=== PATIENT | male | born 1940 | race Caucasian/White ===

== ENCOUNTER 2017-09-13 14:28 | Observation (INO) | payer OTHER, MEDICARE ==
[~2017-09-13] VITALS: Ht 175.3 cm; Wt 56.7 kg
--- NOTE | 2017-09-13 14:40 | ED GENERAL ADULT ---
History of Present Illness General Chief Complaint: Syncope and Near-Syncope Stated Complaint: BIBA SYNCOPAL EPISODE, A FIB Source: patient, family Exam Limitations: no limitations Vital Signs & Intake/Output Vital Signs & Intake/Output Vital Signs Date Time Temp Pulse Resp B/P B/P Pulse O2 O2 Flow FiO2 Mean Ox Delivery Rate 09/13 2307 Room Air 09/13 2246 97.9 63 22 140/96 98 09/13 2126 98.2 65 18 168/80 99 Room Air 09/13 1820 97.7 58 18 153/81 100 Room Air 09/13 1655 98.4 60 18 172/85 97 Room Air 09/13 1506 97 Room Air 09/13 1450 98.0 72 16 115/73 98 Room Air Allergies Coded Allergies: NO KNOWN ALLERGIES (01/29/13) Reconcile Medications Aspirin (Ecotrin*) 325 MG TABLET.DR 1 TAB PO Q48 HEART HEALTH (Reported) Cholecalciferol (Vitamin D3) (Vitamin D3) 400 UNIT TABLET 1 TAB PO DAILY VITAMIN SUPPORT (Reported) Levothyroxine Sodium (Synthroid) 75 MCG TABLET 1 TAB PO DAILY AC THYROID ( Reported) Triage Nurses Notes Reviewed? yes Onset: Abrupt Duration: day(s): (1) Timing: remote history Injury Environment: home Severity: moderate No Modifying Factors: none HPI: Patient is a 76-year-old male presenting to the emergency department with chief complaint of 2 episodes of syncope that happened just prior to arrival. Patient reports that he was feeling lightheaded after doing dishes and sat down. Told his that he was given passout tried to get up to go to the bathroom and then passed out. The lowered him to the ground. He was out for several minutes and then woke up. She called EMS and told him stamina ground but he had a go to the bathroom so he crawled to the bathroom. Patient then moved his bowels and then had another syncopal episode after moving his bowels on the toilet. Per the he was out for several minutes, she thinks 10 minutes. And then EMS arrived. When EMS arrived he was alert and oriented. Patient does report that the for onset of the first episode of syncope he had an episode of chest pressure that had resolved by the time he woke up. Unsure of head strike. Denies any visual changes. No current chest pain palpitations or shortness of breath. History of similar symptoms about 5 years ago and had a complete workup which was negative. 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 Denies any recent changes in medications. No recent travel. Denies recent illness. (Ana Neil) Past History Travel History Traveled to [place] past 21 day No Medical History Any Pertinent Medical History? see below for history Surgical History Surgical History: non-contributory Psychosocial History Who do you live with Family Services at Home None What is your primary language Ma[place] Family History Hx Contributory? No (Ana Neil) Review of Systems Review of Systems Constitutional: Reports: no symptoms. Comments Review of systems: See HPI, All other systems negative. Constitutional, no chills fever or weight loss HEENT: No visual changes no sore throat no congestion Cardiovascular: No palpitation , orthopnea or ankle swelling Skin, no jaundice no rashes Respiratory: No dyspnea cough sputum or hemoptysis GI: No nausea no vomiting : No dysuria No hematuria Muscle skeletal: no back pain, no neck pain, Neurologic: No numbness Psych: No stress anxiety or depression,. Heme/endocrine: No bruising no bleeding no polyuria or polydipsia Immunology: No splenectomy or history of AIDS (Ana Neil) Physical Exam Physical Exam General Appearance: well developed/nourished, no apparent distress, alert, awake , comfortable Comments: Well-developed well-nourished person in no acute distress HEENT: extraocular motion intact, no nystagmus. Pupils equally round and reactive to light and accommodation. Nose is atraumatic. External auditory canal and Tympanic membranes clear. Pharynx normal. No swelling or edema. Neck: Supple, no lymphadenopathy, normal range of motion without pain or tenderness, no C-spine tenderness. Back: Nontender Cardiovascular: Regular rate and rhythms, unable to appreciate any murmurs rubs or gallops. Respiratory: Chest nontender. No respiratory distress.breath sounds clear to auscultation bilaterally Abdomen: Soft, nontender nondistended, no appreciable organomegaly. Normal bowel sounds. No ascites, no rebound or guarding. No palpable masses. Extremity: No edema, no calf tenderness to palpation, normal and equal pulses. Full range of motion of upper and lower extremities without difficulty or pain. Muscular strength is 5 out of 5 in upper and lower extremities bilaterally. [employer] strength is equal and symmetric bilaterally. Neuro: Alert oriented x3, motor sensory normal, cranial nerves II through XII grossly intact. Cerebellar testing is unremarkable. Walks with steady gait. Skin: No appreciable rash on exposed skin, skin is warm and dry. Psych: Mood and affect is normal, memory and judgment is normal. Core Measures ACS in differential dx? Yes CVA/TIA Diagnosis: No Sepsis Present: No Sepsis Focused Exam Completed? No (Sherly SR,Ana) Progress Differential Diagnoses I considered the following diagnoses in my evaluation of the patient: Pulmonary embolus, intracranial hemorrhage, dissection, ACS, dehydration, orthostatic hypotension, seizure, cardiac arrhythmia Plan of Care: Orders Procedure Date/time Status Regular Diet 09/14 B Active CBC WITHOUT DIFFERENTIAL 09/14 0600 Active BASIC ELECTROLYTES PLUS BUN&CR 09/14 0600 Active TROPONIN LEVEL 09/14 0300 Active EKG 09/14 0300 Active Teach/Educate 09/13 230 Active Pain Treatment and Response 09/13 230 Active Nutritional Intake, Monitor 09/13 230 Active Isolation 09/13 230 Active Patient Care Conference 09/13 2304 Active Activity/Ambulation 09/13 2304 Active [id number] DOPPLER 09/13 2212 Active ECHOCARDIOGRAM 09/13 221 Active Code Status 09/13 212 Active TROPONIN LEVEL 09/13 211 Complete EKG 09/13 2112 Active Pathway - chart 09/13 211 Active House Staff 09/13 211 Active Patient Data 09/13 2110 Active Code Status 09/13 211 Complete Patient Data 09/[address] in observation 09/13 194 Active ED Holding Orders 09/13 1943 Active Vital Signs 09/13 194 Active Code Status 09/13 1943 Complete Add-on Test (ER Only) 09/13 1717 Active MISTAKE 09/13 1524 Active Intake & Output 09/13 1454 Active D-DIMER 09/13 1449 Complete Telemetry/[place] Specialist 09/13 1439 Active URINALYSIS 09/13 1439 Complete TSH REFLEX 09/13 1439 Complete TROPONIN LEVEL 09/13 1439 Complete PARTIAL THROMBOPLASTIN TIME 09/13 1439 Complete PROTHROMBIN TIME 09/13 1439 Complete COMPREHENSIVE METABOLIC PANEL 09/13 1439 Complete CBC WITHOUT DIFFERENTIAL 09/13 1439 Complete EKG 09/13 1439 Active VTE Mechanical Prophylaxis 09/13 UNK Active Vital Signs 09/13 UNK Active MISTAKE 09/13 UNK Active Telemetry/[place] Specialist 09/13 UNK Active Current Medications Sig/Sharad Start time Last Medication Dose Stop Time Status Admin Aspirin Buffered 325 MG Q48 09/15 1000 AC (Ecotrin) Cholecalciferol 400 IU DAILY 09/14 1000 AC (Vitamin D) Levothyroxine Sodium 0.075 MG DAILY AC 09/14 0700 AC (Synthroid) Heparin Sodium 5,000 UNIT Q8 09/13 2200 AC (Porcine) Acetaminophen 650 MG Q6P PRN 09/13 2115 AC (Tylenol) Laboratory Tests 09/13/17 2135: Troponin I 0.02 09/13/17 1533: Urine Color YEL, Urine Clarity CLEAR, Urine pH 6.0, Ur Specific Wideman 1.020, Urine Protein TRACE H, Urine Ketones NEG, Urine Nitrite NEG, Urine Bilirubin NEG, Urine Urobilinogen 0.2, Ur Leukocyte Esterase NEG, Ur Microscopic SEDIMENT EXAMINED, Urine RBC FEW H, Urine WBC 1-3 H, Ur Epithelial Cells RARE, Urine Bacteria FEW H, Hyaline Casts RARE H, Urine Mucus RARE, Urine Hemoglobin NEG, Urine Glucose NEG 09/13/17 1449: Anion Gap 12, Estimated GFR 53 L, BUN/Creatinine Ratio 19.2, Glucose 176 H, Calcium 9.3, Total Bilirubin 0.6, AST 39, ALT 37, Alkaline Phosphatase 50, Troponin I < 0.01, Total Protein 6.9, Albumin 3.9, Globulin 3.0, Albumin/ Globulin Ratio 1.3, TSH &T3 &Free T4 Intrp 1.530, PT 11.2, INR 1.03, APTT 25, D- Dimer High Sensitivty 239, CBC w Diff NO MAN DIFF REQ, RBC 4.46 L, MCV 96.6 H, MCH 32.1 H, MCHC 33.2, RDW 13.9, MPV 9.1, Gran % 73.9, Lymphocytes % 17.5 L, Monocytes % 5.6, Eosinophils % 2.1, Basophils % 0.9, Absolute Granulocytes 5.2, Absolute Lymphocytes 1.2, Absolute Monocytes 0.4, Absolute Eosinophils 0.1, Absolute Basophils 0.1 Diagnostic Imaging: Viewed by Me: CT Scan. Discussed w/RAD: CT Scan. Radiology Impression: RESENT AGE: 76 PATIENT ACCOUNT NO: [id number] : 38 LOCATION: [facility] ORDERING PHYSICIAN: Ana SR SERVICE DATE: 09/13/17 EXAM TYPE: CAT - CT CERV SPINE WO IV CONTRAST; CT HEAD WO IV CONTRAST EXAMINATION: CT HEAD WITHOUT CONTRAST CT CERVICAL SPINE WITHOUT CONTRAST CLINICAL INFORMATION: Question head strike. Rule out fracture. COMPARISON: None TECHNIQUE: CT of the head and cervical spine were performed without intravenous contrast. Multiplanar reformats were rendered and reviewed. DLP: 974 mGy-cm. FINDINGS: CT head: There is no intracranial hemorrhage, extra-axial collection, or calvarial fracture. There is no mass, mass effect, or CT evidence of large territory infarction. The ventricles are normal in size and configuration without evidence of hydrocephalus. The paranasal sinuses are clear. The mastoids and middle ear cavities are clear. CT cervical spine: There is grade 1 retrolisthesis of C3 on C4 and grade 1 anterolisthesis of C4 on C5. The alignment is otherwise maintained. No cervical spine fracture is seen. The craniovertebral junction is intact. There are multilevel degenerative changes with severe disc height loss at C3-C4, C5-C6, and C6-C7. There is multilevel uncovertebral and facet arthropathy. There is prominent disc osteophyte complex at C5-C6 which results in mild osseous encroachment on the spinal canal. There is severe neural foraminal stenosis bilaterally at C5-C6 and at C6-C7. There are atheromatous calcifications at the bilateral carotid bifurcations. There is a mass within the left lobe of the thyroid gland which extends substernally into the superior mediastinum with full extent not imaged. This lesion measures on the order of 3.3 cm and demonstrates heterogeneous attenuation including areas of curvilinear and dystrophic calcifications. There is minimal mass effect on the trachea but no narrowing of its lumen. The lung apices are clear. IMPRESSION : CT head: No acute intracranial abnormality. CT cervical spine: No cervical spine fracture or traumatic malalignment. Multilevel degenerative changes are noted with severe neural foraminal stenosis bilaterally at C5-C6 and C6-C7. Heterogeneous lesion in the left lobe of the thyroid extending substernally into the superior mediastinum measuring on the order of 3.3 cm. According to the most recent guidelines, thyroid ultrasound is warranted if this has not already been performed. DICTATED BY: Keisha Mohamud MD DATE/TIME DICTATED:09/13/171701 COOK CHIEF:LATIA DATE/TIME TRANSCRIBED:09/13/171701 CONFIDENTIAL, DO NOT COPY WITHOUT APPROPRIATE AUTHORIZATION. <Electronically signed in Other Vendor System> SIGNED BY: Keisha Mohamud MD 09/13/171712 Initial ED EKG: NSR Prior EKG: unchanged Rhythm Strip: cardiac arrhythmia, read as atrial fibrillation by EMS Comments: Patient asymptomatic in the emergency department. CT head, neck, blood work within normal range. Patient has been in sinus rhythm. Spoke with cardiology. They will consult in the morning. Patient will be admitted for observation for syncope. Patient may need cardiology and neurology consultations. Patient made halter monitor. (Ana Neil) Departure Departure Time of Disposition: 1907 Disposition: STILL A PATIENT Condition: Stable Clinical Impression Primary Impression: Syncope Qualifiers: Syncope type: unspecified Qualified Code: R55 - Syncope and collapse Referrals: Misha WOLFE,Jesus Jalloh (PCP/Family) Departure Forms: Customer Survey General Discharge Information Observation Note Spoke With: Kathi Robin MD Physician Advisor Notified: DMITRY ANGUIANO DO Place Patient In: Non-ED OBS Care Area Rationale for Observation: My rational for observation is as follows . Patient requiring echocardiogram, telemetry monitoring, serial EKGs and troponins, may require carotid Dopplers, neuro consultation. Discharge at this time is medically harmful. (Ana Neil) Observation Note Rationale for Observation: My rational for observation is as follows . PA/VISUAL MANAGER Co-Sign Statement Statement: ED Attending supervision documentation- [X] I saw and evaluated the patient. I have also reviewed all the pertinent lab results and diagnostic results. I agree with the findings and the plan of care as documented in the PA's/VISUAL MANAGER's documentation. [] I have reviewed the ED Record and agree with the PA's/VISUAL MANAGER's documentation. [] Additions or exceptions (if any) to the PAs/VISUAL MANAGER's note and plan are summarized below: [] 76-year-old man with episode of syncope. EKG shows frequent PVCs. Irregular bradycardic rhythm on rhythm strip with PJCs. He is being assigned telemetry for dysrhythmia and syncope. (Dmitry Anguiano DO) Critical Care Note Critical Care Note Critical Care Time: 30-74 min (Sherly SR,Ana)
[2017-09-13 14:59] LABS: ABSOLUTE BASOPHIL COUNT 0.1 /CUMM (0.0-0.2); ABSOLUTE EOSINOPHIL COUNT 0.1 /CUMM (0.0-0.7); ABSOLUTE GRANULOCYTE CT 5.2 /CUMM (1.4-6.5); ABSOLUTE LYMPH COUNT 1.2 /CUMM (1.2-3.4); ABSOLUTE MONOCYTE COUNT 0.4 /CUMM (0.10-0.60); BASOPHIL % 0.9 % (0.0-2.0); EOSINOPHIL % 2.1 % (0-5); GRANULOCYTE % 73.9 % (42.2-75.2); HEMATOCRIT 43.1 % (42-52); MEAN CORPUSCULAR HGB 32.1 PG (27.0-31.0); MEAN CORPUSCULAR HGB CONC 33.2 G/DL (33.0-37.0); MEAN CORPUSCULAR VOLUME 96.6 FL (80.0-94.0); MEAN PLATELET VOLUME 9.1 FL (7.4-10.4); PLATELET COUNT 197 /CUMM (130-400); RBC DISTRIBUTION WIDTH 13.9 % (11.5-14.5); RED BLOOD CELL CT 4.46 /CUMM (4.70-6.10)
[2017-09-13 15:24] LABS: PT 11.2 SEC (9.4-12.5); PTT 25 SEC (25-37)
[2017-09-13] MEDS ORDERED: SYNTHROID75 MCG PO (15:42)
[2017-09-13] MEDS ORDERED: ASPIRIN EC325 M2 PO (15:42)
[2017-09-13] MEDS ORDERED: VITAMIN D3400 UNI1 PO (15:43)
--- NOTE | 2017-09-13 16:14 | RADIOLOGY REPORT ---
EXAMINATION: XR PORTABLE CHEST CLINICAL INFORMATION: Syncope COMPARISON: 02/08/2013 TECHNIQUE: Portable frontal view of the chest was obtained. FINDINGS: No significant abnormality is noted involving the heart, lungs, mediastinum, bony thorax or soft tissues. IMPRESSION: Unremarkable examination.
--- NOTE | 2017-09-13 17:13 | CT SCAN REPORT ---
EXAMINATION: CT HEAD WITHOUT CONTRAST CT CERVICAL SPINE WITHOUT CONTRAST CLINICAL INFORMATION: Question head strike. Rule out fracture. COMPARISON: None TECHNIQUE: CT of the head and cervical spine were performed without intravenous contrast. Multiplanar reformats were rendered and reviewed. DLP: 974 mGy-cm. FINDINGS: CT head: There is no intracranial hemorrhage, extra-axial collection, or calvarial fracture. There is no mass, mass effect, or CT evidence of large territory infarction. The ventricles are normal in size and configuration without evidence of hydrocephalus. The paranasal sinuses are clear. The mastoids and middle ear cavities are clear. CT cervical spine: There is grade 1 retrolisthesis of C3 on C4 and grade 1 anterolisthesis of C4 on C5. The alignment is otherwise maintained. No cervical spine fracture is seen. The craniovertebral junction is intact. There are multilevel degenerative changes with severe disc height loss at C3-C4, C5-C6, and C6-C7. There is multilevel uncovertebral and facet arthropathy. There is prominent disc osteophyte complex at C5-C6 which results in mild osseous encroachment on the spinal canal. There is severe neural foraminal stenosis bilaterally at C5-C6 and at C6-C7. There are atheromatous calcifications at the bilateral carotid bifurcations. There is a mass within the left lobe of the thyroid gland which extends substernally into the superior mediastinum with full extent not imaged. This lesion measures on the order of 3.3 cm and demonstrates heterogeneous attenuation including areas of curvilinear and dystrophic calcifications. There is minimal mass effect on the trachea but no narrowing of its lumen. The lung apices are clear. IMPRESSION: CT head: No acute intracranial abnormality. CT cervical spine: No cervical spine fracture or traumatic malalignment. Multilevel degenerative changes are noted with severe neural foraminal stenosis bilaterally at C5-C6 and C6-C7. Heterogeneous lesion in the left lobe of the thyroid extending substernally into the superior mediastinum measuring on the order of 3.3 cm. According to the most recent guidelines, thyroid ultrasound is warranted if this has not already been performed.
[2017-09-13 22:46] VITALS: BP 140/96
--- NOTE | 2017-09-13 23:02 | History & Physical ---
Margarito Chatterjee MD 09/13/17 7303: General Information and HPI MD Statement: I have seen and personally examined KIMBER SPANGLER and documented this H&P. The patient is a 76 year old M who presented with a patient stated chief complaint of syncope. Source of Information: patient, old records Exam Limitations: no limitations History of Present Illness: 76 year old male with past medical history significant for HTN (untreated), hypothyroidism, vitamin d deficiency, and thyroid nodule followed by Dr. Cabral presents for evaluation of syncopal episode. Patient states he had the exact same presentation five year prior and had a negative work up at this time. His symptoms started earlier today when he felt lightheaded as he was doing dishes. He decided he should sit down and was alarmed enough to tell his not to leave the house. He got up from a seated position and fell on his hands and knees on ambulating to the bathroom. He denied any loss of consciousness at that time although he states his thought he lost consciousness for a second or two. She called for an ambulance and told him not to get up. He still had to use the bathroom so crawled to the toilet. He then syncopized after having a BM. He lost consciousness and the next thing he remembers is waking up with health assistant around him. He denies any chest pain, diaphoresis, palpitations, or nausea prior to the syncopal episode. His initial EKG showed bigeminy and on arrival in the ED showed PVCs. The patient was asymptomatic at the time of evaluation. His review of systems is only positive for chronic loose BMs but otherwise no complaints. He ambulates several miles a day without symptoms. He reports no presyncopal episodes or orthostatic symptoms at any time between today and his episode five years prior. He had imaging of the head, neck and chest x-ray performed and is admitted to telemetry for further evaluation. Allergies/Medications Allergies: Coded Allergies: NO KNOWN ALLERGIES (01/29/13) Home Med list Aspirin (Ecotrin*) 325 MG TABLET. 1 TAB PO Q48 HEART HEALTH (Reported) Cholecalciferol (Vitamin D3) (Vitamin D3) 400 UNIT TABLET 1 TAB PO DAILY VITAMIN SUPPORT (Reported) Levothyroxine Sodium (Synthroid) 75 MCG TABLET 1 TAB PO DAILY AC THYROID ( Reported) Compliance With Home Meds: GOOD Past History Travel History Traveled to [place] past 21 day No Medical History Neurological: NONE EENT: NONE Cardiovascular: NONE Respiratory: NONE Gastrointestinal: NONE Hepatic: NONE Renal: NONE Musculoskeletal: NONE Psychiatric: NONE Endocrine: hypothyroidism Isolation History: Standard Surgical History Surgical History: non-contributory Past Family/Social History Psychosocial History Services at Home: None Functional Ability ADLs Independent: dressing, eating, toileting, bathing. Ambulation: independent Review of Systems Review of Systems Constitutional: Reports: no symptoms. EENTM: Reports: no symptoms. Cardiovascular: Reports: syncope. Respiratory: Reports: no symptoms. GI: Reports: no symptoms. Genitourinary: Reports: no symptoms. Musculoskeletal: Reports: no symptoms. Skin: Reports: no symptoms. Neurological/Psychological: Reports: no symptoms. Hematologic/Endocrine: Reports: no symptoms. Immunologic/Allergic: Reports: no symptoms. All Other Systems: Reviewed and Negative Exam & Diagnostic Data Last 24 Hrs of Vital Signs/I&O Vital Signs Date Time Temp Pulse Resp B/P B/P Pulse O2 O2 Flow FiO2 Mean Ox Delivery Rate 09/13 2307 Room Air 09/13 2246 97.9 63 22 140/96 98 09/13 2126 98.2 65 18 168/80 99 Room Air 09/13 1820 97.7 58 18 153/81 100 Room Air 09/13 1655 98.4 60 18 172/85 97 Room Air 09/13 1506 97 Room Air 09/13 1450 98.0 72 16 115/73 98 Room Air Intake & Output 09/14 0800 09/14 0000 09/13 1600 Intake Total 0 Output Total 200 Balance -200 0 Intake, Oral 0 Output, Urine 200 Patient 56.727 kg Weight Physical Exam General Appearance Alert, Oriented X3, Cooperative, No Acute Distress Cardiovascular Regular Rate, Normal S1, Normal S2, No Murmurs Lungs Clear to Auscultation, Normal Air Movement Abdomen Normal Bowel Sounds, Soft, No Tenderness, No Masses Extremities No Clubbing, No Cyanosis, No Edema, Normal Pulses Last 24 Hrs of Labs/Inder: Laboratory Tests 09/13/17 2135: Troponin I 0.02 09/13/17 1533: Urine Color YEL, Urine Clarity CLEAR, Urine pH 6.0, Ur Specific [place] 1.020, Urine Protein TRACE H, Urine Ketones NEG, Urine Nitrite NEG, Urine Bilirubin NEG, Urine Urobilinogen 0.2, Ur Leukocyte Esterase NEG, Ur Microscopic SEDIMENT EXAMINED, Urine RBC FEW H, Urine WBC 1-3 H, Ur Epithelial Cells RARE, Urine Bacteria FEW H, Hyaline Casts RARE H, Urine Mucus RARE, Urine Hemoglobin NEG, Urine Glucose NEG 09/13/17 1449: Anion Gap 12, Estimated GFR 53 L, BUN/Creatinine Ratio 19.2, Glucose 176 H, Calcium 9.3, Magnesium Pending, Total Bilirubin 0.6, AST 39, ALT 37, Alkaline Phosphatase 50, Troponin I < 0.01, Total Protein 6.9, Albumin 3.9, Globulin 3.0, Albumin/Globulin Ratio 1.3, TSH &T3 &Free T4 Intrp 1.530, PT 11.2, INR 1.03, APTT 25, D-Dimer High Sensitivty 239, CBC w Diff NO MAN DIFF REQ, RBC 4.46 L, MCV 96.6 H, MCH 32.1 H, MCHC 33.2, RDW 13.9, MPV 9.1, Gran % 73.9, Lymphocytes % 17.5 L, Monocytes % 5.6, Eosinophils % 2.1, Basophils % 0.9, Absolute Granulocytes 5.2, Absolute Lymphocytes 1.2, Absolute Monocytes 0.4, Absolute Eosinophils 0.1, Absolute Basophils 0.1 Diagnostic Data CXR Results No significant abnormality is noted involving the heart, lungs, mediastinum, bony thorax or soft tissues. Other Results CT head: There is no intracranial hemorrhage, extra-axial collection, or calvarial fracture. There is no mass, mass effect, or CT evidence of large territory infarction. The ventricles are normal in size and configuration without evidence of hydrocephalus. The paranasal sinuses are clear. The mastoids and middle ear cavities are clear. CT cervical spine: There is grade 1 retrolisthesis of C3 on C4 and grade 1 anterolisthesis of C4 on C5. The alignment is otherwise maintained. No cervical spine fracture is seen. The craniovertebral junction is intact. There are multilevel degenerative changes with severe disc height loss at C3-C4, C5-C6, and C6-C7. There is multilevel uncovertebral and facet arthropathy. There is prominent disc osteophyte complex at C5-C6 which results in mild osseous encroachment on the spinal canal. There is severe neural foraminal stenosis bilaterally at C5-C6 and at C6-C7. There are atheromatous calcifications at the bilateral carotid bifurcations. There is a mass within the left lobe of the thyroid gland which extends substernally into the superior mediastinum with full extent not imaged. This lesion measures on the order of 3.3 cm and demonstrates heterogeneous attenuation including areas of curvilinear and dystrophic calcifications. There is minimal mass effect on the trachea but no narrowing of its lumen. The lung apices are clear. Assessment/Plan Assessment: 76 year old male with past medical history significant for HTN (untreated), hypothyroidism, vitamin d deficiency, and thyroid nodule followed by Dr. Cabral presents for evaluation of syncopal episode. Syncope: Monitor on telemetry Check orthostatic vital signs Check serial troponins and EKGs Check echocardiogram Cardiology consultation Check carotid ultrasound given atheromatous calcifications on CT CT head negative Continue aspirin Hypothyroidism: TSH wnl Continue synthroid 75mcg Hypertension: Patient was reluctant to start antihypertensive as an outpatient SBP 140s-170s Continue to monitor, discuss medical mgmt with patient Hyperglycemia: Check hemoglobin a1c Elevated creatinine: NS x 1L Repeat BEP in AM Heart healthy diet DVT ppx-heparin 5000unit subcutaneous q8h DNR/DNI As Ranked By This Provider Problem List: 1. Syncope Qualifiers Syncope type: unspecified Qualified Code: R55 - Syncope and collapse 2. Hypothyroidism Core Measures/Misc (03/06) Acute Coronary Syndrome ACS Diagnosis: No Congestive Heart Failure Congestive Heart Failure Diagnosis No Cerebrovascular Accident CVA/TIA Diagnosis: No VTE (View Protocol) VTE Risk Factors Age>40 No Mechanical VTE Prophylaxis d/t N/A MechProphylax Ordered No VTE Pharm Prophylaxis d/t NA PharmProphylax ordered Sepsis (View protocol) Sepsis Present: No Kathi Robin 09/14/17 0351: Attending MD Review Statement Attending Statement Attending MD Statement: examined this patient, discuss w/resident/PA/REVOLVING FIELD ASSEMBLER, agreed w/resident/PA/REVOLVING FIELD ASSEMBLER, reviewed EMR data (avail), reviewed images, amended to note Attending Assessment/Plan: CC: Syncope PMH: Thyroid nodule, hypothyroidism, white coat hypertension Patient was brought in ER through EMS after a syncopal episode at home. This morning patient was feeling lightheaded. Then he sat down on a recliner later he had feeling of bowel movement so he was getting up to go to bathroom when he almost passed out, supported him and that time, he fell down and remembers crawling to the bathroom. At that time called EMS. While in bathroom patient actually passed out and remembers waking up when EMT was there. He did not have a diarrhea episode it was a regular bowel movement according to him. He did not notice any chest pain, shortness of breath, diaphoresis, chest tightness , nausea, vomiting before the episode. did not notice any seizure-like activity. Patient had similar episode in 2013 when he was suggested to follow-up outpatient which he could not. No obvious reason was found at that time, probably fluctuation and the blood pressure that was notified to him. He was suggested to wear stockings. Currently complete ROS unremarkable. Vitals: Afebrile, pulse 60, RR 16, blood pressure 115/73 on arrival, saturating well on room air. On exam: A O 3, cooperative, no acute distress, neck supple, JVD normal, no lymphadenopathy, mucosa moist, no focal neurological deficit, no dependent edema , no obvious skin rashes or inflammation CVS: S1-S2, RRR. RS: Clear to auscultate bilaterally. Abdomen: Soft, NT, ND, bowel sounds present. CXR: Unremarkable examination. CT head and cervical spine without IV contrast: No acute intracranial abnormality. No cervical spine fracture or traumatic malalignment. Multilevel degenerative changes are noted with severe neural foraminal stenosis bilaterally at C5-C6 and C6-C7. Heterogeneous lesion in the left lobe of the thyroid extending substernally into the superior mediastinum measuring on the order of 3.3 cm. There are atheromatous calcifications at the bilateral carotid bifurcations. Assessment and plan 76-year-old male with history of hypothyroidism and thyroid nodule and probably whitecoat hypertension presented in ER after an episode of syncope. Patient felt lightheaded followed by one episode of presyncope and then actual syncope event he lost consciousness. He denies any chest pain, palpitations, shortness of breath or diaphoresis before the syncopal episode. Complete examination normal. ECG done by EMT shows ventricular bigeminy, repeat ECG was normal except PVCs. Patient needs further evaluation for his syncopal episode, appears to be secondary to arrhythmia. He had similar episode in 2013, exact cause of syncope at that time was not clear, he was notified that it could be probably secondary to fluctuation in his blood pressure, suggested to wear stockings. + Syncope and collapse + History of hypothyroidism and thyroid nodule - Place in observation on telemetry - Continuous telemetry monitoring - Serial troponin and EKG - Orthostatic vitals - 2-D echocardiogram in a.m. - Carotid Doppler given the atheromatous plaque in bilateral carotid bifurcation. - Cardiology consult - DVT prophylaxis - Adequate pain control - Check magnesium, replete if low - DVT prophylaxis Cassius Skinner 09/14/17 0358: Resident Review Statement Resident Statement: examined this patient, discussed with internet application developer, agreed with internet application developer, discussed with family, reviewed EMR data (avail), discussed with nursing , discussed with case mgmt, reviewed images, amended to note Other Findings: This is a 76-year-old male with past medical history significant for hypothyroidism, white coat hypertension, stage I diastolic dysfunction, history of syncope in the past presented to the hospital for evaluation of an episode of syncope. Patient reports that he has had episode of witnessed syncope at home around this morning. Patient felt dizzy and lightheaded after his breakfast, fell on the floor with out LOC, remembers crawling to the bathroom for bowel movement. He remembers that EMS was called after that as he passed out during bowel movement. Denies any bladder or bowel incontinence, seizures, postictal confusion. Denies any chest pain, short of breath, diaphoresis. And reports that he had similar episode of syncope in 2013, he was admitted to [facility], echocardiogram was done in 2012 which showed stage I diastolic dysfunction. No obvious reason was found at that time he was suggested to wear stockings. Were followed up with any performance consultant. Review of systems was completely negative except for syncopal episode. Denied smoking, alcohol abuse, illicit drug abuse. He follows up with his primary care physician Dr. Cabral twice in a year. Vitals: Afebrile, pulse 60, RR 16, blood pressure 115/73 on arrival, saturating well on room air. On exam: A O 3, cooperative, no acute distress, neck supple, JVD normal, no lymphadenopathy, mucosa moist, no focal neurological deficit, no dependent edema , no obvious skin rashes or inflammation CVS: S1-S2, RRR. RS: Clear to auscultate bilaterally. Abdomen: Soft, NT, ND, bowel sounds present. Labs CBC and CMP within normal limits except for creatinine 1.3, baseline was 1. LFT normal TSH normal EKG- EMT EKG showed ventricular bigeminy however repeat EKG was normal, sinus rhythm, rate 54, PVC. No ST-T wave changes CXR: Unremarkable examination. CT head and cervical spine without IV contrast: No acute intracranial abnormality. No cervical spine fracture or traumatic malalignment. Multilevel degenerative changes are noted with severe neural foraminal stenosis bilaterally at C5-C6 and C6-C7. Heterogeneous lesion in the left lobe of the thyroid extending substernally into the superior mediastinum measuring on the order of 3.3 cm. There are atheromatous calcifications at the bilateral carotid bifurcations. Syncope and collapse 76-year-old male with past medical history of hypothyroidism, syncope presented with an episode of witnessed syncope. He felt lightheaded followed by an episode of presyncope, actual syncope during bowel movement. No chest pain palpitations, short of breath or diaphoresis associated with the syncopal episode. * Syncope possibly from vasovagal versus arrhythmias given his ventricular bigeminy, PVCs. * Place in observation in the telemetry floor * Continuous telemetry monitoring * Serial troponins were negative * Initial EKG by EMS showed ventricular bigeminy * Repeat EKG sinus rhythm, rate 54, PVC, no acute ST-T wave changes * Serial troponin and EKG * Cardiology consult in a.m. * 2-D echo in the a.m. * orthostatic vitals * vitals every shift carotid artery calcifications Cervical spine CT showed atheromatous calcifications at the bilateral carotid bifurcations. Will get a carotid artery ultrasound Thyroid gland nodule There is a mass within the left lobe of the thyroid gland which extends substernally into the superior mediastinum with full extent not imaged. This lesion measures on the order of 3.3 cm and demonstrates heterogeneous attenuation including areas of curvilinear and dystrophic calcifications. There is minimal mass effect on the trachea but no narrowing of its lumen. * he needs outpatient follow-up for further workup Hypothyroidism-continue Synthyroid 75 g daily Continue vitamin D supplement Continue aspirin 325 every 48 Patient is DNR/DNI DVT prophylaxis subcutaneous heparin Regular diet Pain pathway altered Replete electrolytes
[2017-09-14 04:47] LABS: ABSOLUTE BASOPHIL COUNT 0 /CUMM (0.0-0.2); ABSOLUTE EOSINOPHIL COUNT 0.1 /CUMM (0.0-0.7); ABSOLUTE GRANULOCYTE CT 5.5 /CUMM (1.4-6.5); ABSOLUTE MONOCYTE COUNT 0.4 /CUMM (0.10-0.60); BASOPHIL % 0.3 % (0.0-2.0); EOSINOPHIL % 1.3 % (0-5); GRANULOCYTE % 78.3 % (42.2-75.2); HEMATOCRIT 43.5 % (42-52); MEAN CORPUSCULAR HGB 31.6 PG (27.0-31.0); MEAN CORPUSCULAR HGB CONC 32.7 G/DL (33.0-37.0); MEAN CORPUSCULAR VOLUME 96.5 FL (80.0-94.0); MEAN PLATELET VOLUME 9.4 FL (7.4-10.4); RBC DISTRIBUTION WIDTH 13.6 % (11.5-14.5); RED BLOOD CELL CT 4.51 /CUMM (4.70-6.10)
[2017-09-14 05:04] LABS: PLATELET COUNT ND /CUMM (130-400)
[2017-09-14 07:55] VITALS: BP 170/72
--- NOTE | 2017-09-14 07:56 | PN-Observation ---
Ul [facility] WOLFE,[facility] 09/14/17 0755: Observation Note Observation Note _ I have personally examined KIMBER SPANGLER. him disposition is uncertain at this time. Before a determination can be made, he requires continued observation for the following reasons [recurrent syncope pending workup]. Assessment/Plan Medical Assessment: 76-year-old male with past medical history significant for hypothyroidism, whitecoat hypertension history of stage I diastolic dysfunction in 2013 and history of syncope, history of thyroid nodule brought to emergency department by EMS after patient passed out on his toilet. Vitals in emergency department, patient afebrile, no tachypnea, no tachycardia, no hypotension or uncontrolled hypertension, oxygen saturation of 97-99% on room air. EKG emergency department showed normal sinus rhythm as per EMS rhythm strip read as atrial fibrillation. Head CT was negative for any intracranial findings. Patient remained afebrile overnight. Hemodynamically stable. On court monitor episodes of sinus bradycardia noticed. Along with first-degree heart block, lowest heart rate 49 and highest heart rate 66. Patient was placed in observation for the management of following problems New episode of Syncope/history of syncope/history of diastolic dysfunction Patient has been worked up in the past in 2013 for a similar episode of syncope. He was noticed to have stage I diastolic dysfunction, ejection fraction of 60% and mild mitral regurgitation and mild aortic regurg and aortic sclerosis. Current episode of syncope was situational as per the patient, initially he felt lightheaded and then he crawled to the restroom floor and had a bowel movement and after that he does not remember when he lost consciousness. Patient denied any chest pain, shortness of breath, dyspnea on exertion, headaches, history of seizures, or sudden weakness. Patient had a head CT that showed no acute intracranial abnormality in emergency department, CT cervical spine showed multilevel degenerative changes, atheromatous calcifications at the bilateral carotid bifurcations and 3.3 cm heterogenous lesion in the left lobe of thyroid. Patient is positive for orthostatic hypotension. This point out more towards syncope in the setting of dehydration. Vasovagal syncopes and is a possibility as patient had a bowel movement before syncope. Echocardiogram and ultrasound of carotids was ordered overnight. Cardiology consult was also placed. History of thyroid nodule/hypothyroidism Patient has history of thyroid nodule for which he follows up with Dr. Cabral. CT scan of the head also noticed heterogenous lesion on the left lower thyroid extending substernally into the superior mediastinum measuring 3.3 cm. Patient will need further workup as an outpatient. Patient is also on levothyroxine for the management of hypothyroidism CODE STATUS Patient is DNR/DNI Diet Patient is on regular diet Problem List: 1. Syncope Qualifiers Syncope type: unspecified Qualified Code: R55 - Syncope and collapse DVT/Prophylaxis: pharmacological Subjective Follow-up For: Recurrent Syncope Complaints: no complaints Subjective: Patient was noted he lying in the bed. He remained afebrile overnight to complaints of shortness of breath or chest pain overnight. He did not have any other syncopal episodes. Review of Systems Constitutional: Denies: chills, fever. EENTM: Denies: visual changes. Cardiovascular: Denies: chest pain, palpitations. Respiratory: Denies: short of breath. Gastrointestinal: Denies: abdominal pain, nausea, vomiting. Genitourinary: Denies: discharge. Objective Last 24 Hrs of Vital Signs/I&O Vital Signs Date Time Temp Pulse Resp B/P B/P Pulse O2 O2 Flow FiO2 Mean Ox Delivery Rate 09/14 0755 98.4 52 22 170/72 97 Room Air 09/13 2307 Room Air 09/13 2246 97.9 63 22 140/96 98 09/13 2126 98.2 65 18 168/80 99 Room Air 09/13 1820 97.7 58 18 153/81 100 Room Air 09/13 1655 98.4 60 18 172/85 97 Room Air 09/13 1506 97 Room Air 09/13 1450 98.0 72 16 115/73 98 Room Air Intake & Output 09/14 1600 09/14 0800 09/14 0000 Intake Total 400 Output Total 200 Balance 400 -200 Intake, Oral 400 Output, Urine 200 Patient 125 lb Weight Physical Exam General Appearance: Alert, Oriented X3, Cooperative, No Acute Distress HEENT: Atraumatic Neck: Supple, No Bruit Cardiovascular: Regular Rate, Normal S1, Normal S2, Systolic murmur Lungs: Clear to Auscultation, Normal Air Movement Abdomen: Normal Bowel Sounds, Soft, No Tenderness, No Hepatospenomegaly Neurological: Normal Speech, Normal Tone, Sensation Intact Extremities: No Clubbing, No Cyanosis, No Edema Current Medications: Current Medications Sig/Sharad Start time Last Medication Dose Route Stop Time Status Admin Acetaminophen 650 MG Q6P PRN 09/135 AC PO Aspirin Buffered 325 MG Q48 09/15 1000 AC PO Cholecalciferol 400 IU DAILY 09/14 1000 AC 09/14 PO 0847 Heparin Sodium 5,000 UNIT Q8 09/13 2200 AC (Porcine) SC Levothyroxine Sodium 0.075 MG DAILY AC 09/14 0700 AC PO Last 24 Hrs of Labs/Mics: Laboratory Tests 09/14/17414: Troponin I 0.02 09/14/17414: Anion Gap 11, Estimated GFR > 60, BUN/Creatinine Ratio 17.3, CBC w Diff MAN DIFF ORDERED, RBC 4.51 L, MCV 96.5 H, MCH 31.6 H, MCHC 32.7 L, RDW 13.6, Plt Count ND, MPV 9.4, Gran % 78.3 H, Lymphocytes % 13.7 L, Monocytes % 6.4, Eosinophils % 1.3, Basophils % 0.3, Absolute Granulocytes 5.5, Segmented Neutrophils 83 H, Absolute Lymphocytes 1.0 L, Lymphocytes 9 L, Monocytes 5, Absolute Monocytes 0.4, Eosinophils 3, Absolute Eosinophils 0.1, Absolute Basophils 0, Platelet Estimate ADEQUATE, Polychromasia 1+, Hypochromic- Microcytic 1+, Poikilocytosis 1+, Ovalocytes 1+, Fld Total RBCs Counted 100 09/13/172134: Troponin I 0.02 09/13/17 1533: Urine Color YEL, Urine Clarity CLEAR, Urine pH 6.0, Ur Specific [place] 1.020, Urine Protein TRACE H, Urine Ketones NEG, Urine Nitrite NEG, Urine Bilirubin NEG, Urine Urobilinogen 0.2, Ur Leukocyte Esterase NEG, Ur Microscopic SEDIMENT EXAMINED, Urine RBC FEW H, Urine WBC 1-3 H, Ur Epithelial Cells RARE, Urine Bacteria FEW H, Hyaline Casts RARE H, Urine Mucus RARE, Urine Hemoglobin NEG, Urine Glucose NEG 09/13/17 1449: Anion Gap 12, Estimated GFR 53 L, BUN/Creatinine Ratio 19.2, Glucose 176 H, Calcium 9.3, Magnesium 2.0, Total Bilirubin 0.6, AST 39, ALT 37, Alkaline Phosphatase 50, Troponin I < 0.01, Total Protein 6.9, Albumin 3.9, Globulin 3.0, Albumin/Globulin Ratio 1.3, TSH &T3 &Free T4 Intrp 1.530, PT 11.2, INR 1.03, APTT 25, D-Dimer High Sensitivty 239, CBC w Diff NO MAN DIFF REQ, RBC 4.46 L, MCV 96.6 H, MCH 32.1 H, MCHC 33.2, RDW 13.9, MPV 9.1, Gran % 73.9, Lymphocytes % 17.5 L, Monocytes % 5.6, Eosinophils % 2.1, Basophils % 0.9, Absolute Granulocytes 5.2, Absolute Lymphocytes 1.2, Absolute Monocytes 0.4, Absolute Eosinophils 0.1, Absolute Basophils 0.1 Angle WOLFE,[place] 09/14/17 1531: Observation Note Observation Note _ I have personally examined KIMBER SPANGLER. him disposition is uncertain at this time. Before a determination can be made, he requires continued observation for the following reasons []. Patient seen and examined. His was at the bedside. Case discussed with Dr. Olmedo from cardiology. Patient does not report any further dizziness or lightheadedness. He is afebrile his vital signs stable and he is saturating well on room air 97% saturation. His chest exam is clear neuro exam is nonfocal. Abdomen soft nontender pulses are present. His 3 sets of troponin have been negative and his creatinine has decreased to 1.1. Results of imaging studies including carotid Doppler and echocardiogram and CT head scan were reviewed. Assessment plan Presyncopal and syncopal episode at home, need to rule out arrhythmia and bradycardia arrhythmia. Strong possibility of vasovagal syncope due to dehydration since patient had elevated creatinine and was postural. Plan is to continue telemetry monitoring. Patient may need Holter upon discharge. We will not pursue any further workup for thyroid nodule since he is being followed by Dr. Cabral as outpatient. Please repeat orthostatic blood pressure in a.m. Patient still orthostatic he will need the lack stockings.
--- NOTE | 2017-09-14 10:22 | Cons- Cardiology ---
General Information and HPI Consulting Request Date of Consult: 09/14/17 Requested By: Terra Barbour MD Reason for Consult: Syncope Source of Information: patient Exam Limitations: no limitations History of Present Illness: The patient is a 76-year-old man who has been generally healthy except for hypothyroidism. In 2012 he was admitted briefly for dizziness. There apparently was no mary syncope at that time. An echocardiogram showed only aortic sclerosis and normal LV function. He did not follow up with cardiology after this admission. He was then well until yesterday when he had 2 documented syncopal episodes. The first was when he got up from a chair and told his that he felt dizzy and passed out briefly, she says for about 10 seconds. He then awoke and said he had to go to the bathroom. He sat on the toilet, had a bowel movement and passed out again. His says this was a longer episode, perhaps a few minutes to 10 minutes. The states that he was still passed out when maintenance carpenter arrived, but the ER notes states that he was alert when maintenance carpenter arrived. The rhythm strips and EKG from maintenance carpenter documents a tachycardia, possibly atrial fibrillation with PVCs. There is also period of bradycardia noted, possibly a sick sinus syndrome with a junctional escape rhythm at a rate of about 50-55. Subsequent EKG showed sinus rhythm. This morning while the patient was up to the bathroom he had some tachycardia noted with a bundle-branch pattern on the monitor at a rate in the 120s. This is possibly a rate related bundle branch block but this is not certain. He has had no significant bradycardia since he has been here. The patient denies any known heart disease. He denies chest pain or shortness of breath on exertion. He is a lifelong nonsmoker. He does have labile blood pressure but is not on medications for this. His only medications at home are Synthroid and aspirin. Allergies/Medications Allergies: Coded Allergies: NO KNOWN ALLERGIES (01/29/13) Home Med List: Aspirin (Ecotrin*) 325 MG TABLET. 1 TAB PO Q48 HEART HEALTH (Reported) Cholecalciferol (Vitamin D3) (Vitamin D3) 400 UNIT TABLET 1 TAB PO DAILY VITAMIN SUPPORT (Reported) Levothyroxine Sodium (Synthroid) 75 MCG TABLET 1 TAB PO DAILY AC THYROID ( Reported) Current Medications: Current Medications Sig/Sharad Start time Last Medication Dose Route Stop Time Status Admin Acetaminophen 650 MG Q6P PRN 09/13 2115 AC PO Aspirin Buffered 325 MG Q48 09/15 1000 AC PO Cholecalciferol 400 IU DAILY 09/14 1000 AC 09/14 PO 0847 Heparin Sodium 5,000 UNIT Q8 09/13 2200 AC (Porcine) SC Levothyroxine Sodium 0.075 MG DAILY AC 09/14 0700 AC PO Review of Systems Review of Systems: He has no other complaints in the review of systems. Past History Travel History Traveled to [place] past 21 day No Medical History Blood Transfusion Hx: No Neurological: NONE EENT: NONE Cardiovascular: hypertension Respiratory: NONE Gastrointestinal: NONE Hepatic: NONE Renal: NONE Musculoskeletal: NONE Psychiatric: NONE Endocrine: hypothyroidism Blood Disorders: NONE Cancer(s): NONE LONG TERM CARE SOCIAL WORKER/Reproductive: NONE Surgical History Surgical History: non-contributory Psychosocial History Services at Home: None Smoking Status: Never Smoked Functional Ability ADLs Independent: dressing, eating, toileting, bathing. Ambulation: independent Exam & Diagnostic Data Vital Signs and I&O Vital Signs Date Time Temp Pulse Resp B/P B/P Pulse O2 O2 Flow FiO2 Mean Ox Delivery Rate 09/14 0755 98.4 52 22 170/72 97 Room Air 09/13 2307 Room Air 09/13 2246 97.9 63 22 140/96 98 09/13 2126 98.2 65 18 168/80 99 Room Air 09/13 1820 97.7 58 18 153/81 100 Room Air 09/13 1655 98.4 60 18 172/85 97 Room Air 09/13 1506 97 Room Air 09/13 1450 98.0 72 16 115/73 98 Room Air Intake & Output 09/14 1600 09/14 0809/14 0000 09/13 1600 09/13 0800 09/13 0000 Intake Total 400 0 Output Total 200 Balance 400 -200 0 Intake, Oral 400 0 Output, Urine 200 Patient 125 lb Weight Physical Exam: Well-developed well-nourished elderly man in no acute distress, alert and cooperative HEENT exam normal Neck veins not distended Carotids normal Chest is clear Heart regular rhythm, occasional extrasystole heard, grade 2/6 systolic ejection murmur at the base Extremities no edema good pulses Labs/Inder Results: Laboratory Tests 09/14 09/14 09/13 0415 0415 2135 Chemistry Sodium (137 - 145 mmol/L) 144 Potassium (3.5 - 5.1 mmol/L) 4.0 Chloride (98 - 107 mmol/L) 110 H Carbon Dioxide (22 - 30 mmol/L) 23 Anion Gap (5 - 16) 11 BUN (9 - 20 mg/dL) 19 Creatinine (0.7 - 1.2 mg/dL) 1.1 Estimated GFR (>60 ml/min) > 60 BUN/Creatinine Ratio (7 - 25 %) 17.3 Troponin I (<0.11 ng/ml) 0.02 0.02 Hematology CBC w Diff MAN DIFF ORDERED WBC (4.8 - 10.8 /CUMM) 7.0 RBC (4.70 - 6.10 /CUMM) 4.51 L Hgb (14.0 - 18.0 G/DL) 14.2 Hct (42 - 52 %) 43.5 MCV (80.0 - 94.0 FL) 96.5 H MCH (27.0 - 31.0 PG) 31.6 H MCHC (33.0 - 37.0 G/DL) 32.7 L RDW (11.5 - 14.5 %) 13.6 Plt Count (130 - 400 /CUMM) ND MPV (7.4 - 10.4 FL) 9.4 Gran % (42.2 - 75.2 %) 78.3 H Lymphocytes % (20.5 - 51.1 %) 13.7 L Monocytes % (1.7 - 9.3 %) 6.4 Eosinophils % (0 - 5 %) 1.3 Basophils % (0.0 - 2.0 %) 0.3 Absolute Granulocytes (1.4 - 6.5 /CUMM) 5.5 Segmented Neutrophils (42.2 - 75.2 %) 83 H Absolute Lymphocytes (1.2 - 3.4 /CUMM) 1.0 L Lymphocytes (20.5 - 51.1 %) 9 L Monocytes (1.7 - 9.3 %) 5 Absolute Monocytes (0.10 - 0.60 /CUMM) 0.4 Eosinophils (0 - 5.0 %) 3 Absolute Eosinophils (0.0 - 0.7 /CUMM) 0.1 Absolute Basophils (0.0 - 0.2 /CUMM) 0 Platelet Estimate (ADEQUATE) ADEQUATE Polychromasia 1+ Hypochromic-Microcytic 1+ Poikilocytosis 1+ Ovalocytes 1+ Other Body Source Fld Total RBCs Counted (%) 100 09/13 1533 Urines Urine Color (YEL,AMB,STR) YEL Urine Clarity (CLEAR) CLEAR Urine pH (5.0 - 8.0) 6.0 Ur Specific [place] (1.001 - 1.035) 1.020 Urine Protein (NEG,<30 MG/DL) TRACE H Urine Ketones (NEG) NEG Urine Nitrite (NEG) NEG Urine Bilirubin (NEG) NEG Urine Urobilinogen (0.1 - 1.0 EU/dl) 0.2 Ur Leukocyte Esterase (NEG) NEG Ur Microscopic SEDIMENT EXAMINED Urine RBC (0 - 5 /HPF) FEW H Urine WBC (0 - 2 /HPF) 1-3 H Ur Epithelial Cells (NONE,FEW) RARE Urine Bacteria (NEG/NONE) FEW H Hyaline Casts (0/LPF) RARE H Urine Mucus (FEW,NONE) RARE Urine Hemoglobin (NEG) NEG Urine Glucose (N MG/DL) NEG 09/13 1449 Chemistry Sodium (137 - 145 mmol/L) 142 Potassium (3.5 - 5.1 mmol/L) 3.8 Chloride (98 - 107 mmol/L) 103 Carbon Dioxide (22 - 30 mmol/L) 28 Anion Gap (5 - 16) 12 BUN (9 - 20 mg/dL) 25 H Creatinine (0.7 - 1.2 mg/dL) 1.3 H Estimated GFR (>60 ml/min) 53 L BUN/Creatinine Ratio (7 - 25 %) 19.2 Glucose (65 - 99 mg/dL) 176 H Calcium (8.4 - 10.2 mg/dL) 9.3 Magnesium (1.6 - 2.3 mg/dL) 2.0 Total Bilirubin (0.2 - 1.3 mg/dL) 0.6 AST (17 - 59 U/L) 39 ALT (21 - 72 U/L) 37 Alkaline Phosphatase (< 127 U/L) 50 Troponin I (<0.11 ng/ml) < 0.01 Total Protein (6.3 - 8.2 g/dL) 6.9 Albumin (3.5 - 5.0 g/dL) 3.9 Globulin (1.9 - 4.2 gm/dL) 3.0 Albumin/Globulin Ratio (1.1 - 2.2 %) 1.3 TSH &T3 &Free T4 Intrp (0.27 - 4.20 uIU/mL) 1.530 Coagulation PT (9.4 - 12.5 SEC) 11.2 INR (0.90 - 1.17) 1.03 APTT (25 - 37 SEC) 25 D-Dimer High Sensitivty (0 - 243 ng/ml) 239 Hematology CBC w Diff NO MAN DIFF REQ WBC (4.8 - 10.8 /CUMM) 7.0 RBC (4.70 - 6.10 /CUMM) 4.46 L Hgb (14.0 - 18.0 G/DL) 14.3 Hct (42 - 52 %) 43.1 MCV (80.0 - 94.0 FL) 96.6 H MCH (27.0 - 31.0 PG) 32.1 H MCHC (33.0 - 37.0 G/DL) 33.2 RDW (11.5 - 14.5 %) 13.9 Plt Count (130 - 400 /CUMM) 197 MPV (7.4 - 10.4 FL) 9.1 Gran % (42.2 - 75.2 %) 73.9 Lymphocytes % (20.5 - 51.1 %) 17.5 L Monocytes % (1.7 - 9.3 %) 5.6 Eosinophils % (0 - 5 %) 2.1 Basophils % (0.0 - 2.0 %) 0.9 Absolute Granulocytes (1.4 - 6.5 /CUMM) 5.2 Absolute Lymphocytes (1.2 - 3.4 /CUMM) 1.2 Absolute Monocytes (0.10 - 0.60 /CUMM) 0.4 Absolute Eosinophils (0.0 - 0.7 /CUMM) 0.1 Absolute Basophils (0.0 - 0.2 /CUMM) 0.1 Diagnostic Data EKG Results SR 60, mult PACs, 1st deg AV Block, IRBBB, LAFB CXR Results PATIENT: KIMBER SPANGLER PRESENT AGE: 76 PATIENT ACCOUNT NO: [id number] : 38 LOCATION: [facility] ORDERING PHYSICIAN: Ana SR SERVICE DATE: 09/13/17 EXAM TYPE: RAD - XRY-PORTABLE CHEST XRAY EXAMINATION: XR PORTABLE CHEST CLINICAL INFORMATION: Syncope COMPARISON: 02/08/2013 TECHNIQUE: Portable frontal view of the chest was obtained. FINDINGS: No significant abnormality is noted involving the heart, lungs, mediastinum, bony thorax or soft tissues. IMPRESSION: Unremarkable examination. DICTATED BY: Evelio Bonilla MD DATE/TIME DICTATED:09/13/171608 COMMUNICATIONS TOWER TECHNICIAN:LATIA DATE/TIME TRANSCRIBED:09/13/171608 CONFIDENTIAL, DO NOT COPY WITHOUT APPROPRIATE AUTHORIZATION. <Electronically signed in Other Vendor System> SIGNED BY: Evelio Bonilla MD 09/13/17 2702 Other Results CONCLUSIONS Normal global left ventricular size, wall thickness, systolic function with no obvious regional wall motion abnormalities. Left ventricular ejection fraction is estimated at >65 %. Normal left ventricular diastolic filling pattern for age. The left atrium is normal in size. Mild thickening/calcification of the mitral valve leaflets. Trace mitral regurgitation. Focal thickening of the aortic valve cusps. No aortic stenosis. Trace to mild aortic regurgitation. Pulmonary artery systolic pressure is normal. The aortic arch and great vessels are not well seen. Christopher Olmedo M.D. (Electronically Signed) Final Date: 14 September 2017 12:38 Assessment/Plan Assessment/Plan This patient presents with 2 witnessed syncopal episodes. He has had some arrhythmias documented including some tachycardia and some bradycardia documented by maintenance carpenter. It is possible he has sinus node dysfunction with a tachybrady syndrome which might explain his syncopal episodes. He also has multiple conduction defects on his electrocardiogram. I think we need some further monitoring to determine this. He has had his echocardiogram which I will review. I would like to have him be active in the hospital walking and monitor his rhythm. If we don't find anything we might consider further outpatient evaluation with Holter or longer term monitoring. I told him that if we found anything consistent with sinus node dysfunction or tachybrady syndrome he would probably need a pacemaker. Consult Acknowledgment - Thank you for your consult request.
--- NOTE | 2017-09-14 11:20 | ULTRASOUND REPORT ---
EXAMINATION: DUPLEX BILATERAL CAROTID ULTRASOUND CLINICAL INFORMATION: Syncope. COMPARISON: None. TECHNIQUE: Duplex bilateral carotid US was performed using real-time ultrasound and Doppler techniques (integrating B-mode 2D vascular images, Doppler spectral analysis and color flow Doppler imaging). These techniques were utilized to interrogate the extracranial carotid and vertebral arteries bilaterally. The degree of stenosis is based off criteria similar to NASCET. FINDINGS: 1. On the right: Calcified plaque is present at the carotid bifurcation but velocity measurements are normal and do not suggest a stenosis of greater than 50% diameter reduction in the right ICA. The vertebral artery is patent demonstrating antegrade flow. 2. On the left: Calcified plaque is present at the carotid bifurcation but velocity measurements are normal and do not suggest a stenosis of greater than 50% diameter reduction in the left ICA. The vertebral artery is patent demonstrating antegrade flow. The external carotid arteries appear unremarkable. Incidental note of bilateral thyroid nodules which are incompletely characterize. IMPRESSION: Plaque is present in the internal carotid arteries but velocity measurements are normal and there is no evidence to suggest a hemodynamically significant stenosis of greater than 50% diameter reduction.
--- NOTE | 2017-09-14 12:39 | ECHOCARDIOGRAM REPORT ---
KIMBER SPANGLER Age: 76 : 1940 Gender: M Exam Date: 09/14/2017 09:15 Exam Location: [address] Ht (in): 68 Wt (lb): 125 BSA: 1.64 BP: 140 / 96 Ordering Physician: Val Skinner MD Referring Physician: Val Skinner MD Technologist: Po Griffin [facility] Room Number: 189-2 Indications: Arrhythmia Rhythm: Sinus Technical Quality: Good FINDINGS Left Ventricle Normal global left ventricular size, wall thickness, systolic function with no obvious regional wall motion abnormalities. Left ventricular ejection fraction is estimated at >65 %. Normal left ventricular diastolic filling pattern for age. Right Ventricle The right ventricle is normal in size and function. Right Atrium The right atrium is normal in size. Left Atrium The left atrium is normal in size. The interatrial septum is intact. Mitral Valve Mild thickening/calcification of the mitral valve leaflets. Trace mitral regurgitation. Aortic Valve Focal thickening of the aortic valve cusps. No aortic stenosis. Trace to mild aortic regurgitation. Tricuspid Valve The tricuspid valve is normal in structure and function. There is trace tricuspid regurgitation. Pulmonary artery systolic pressure is normal. Pulmonic Valve Structurally normal pulmonic valve. There is trace pulmonic regurgitation. Pericardium Normal pericardium without effusion. No pleural effusion. Great Vessels Normal aortic root dimension. The aortic arch and great vessels are not well seen. CONCLUSIONS Normal global left ventricular size, wall thickness, systolic function with no obvious regional wall motion abnormalities. Left ventricular ejection fraction is estimated at >65 %. Normal left ventricular diastolic filling pattern for age. The left atrium is normal in size. Mild thickening/calcification of the mitral valve leaflets. Trace mitral regurgitation. Focal thickening of the aortic valve cusps. No aortic stenosis. Trace to mild aortic regurgitation. Pulmonary artery systolic pressure is normal. The aortic arch and great vessels are not well seen. Christopher Olmedo M.D. (Electronically Signed) Final Date: 14 September 2017 12:38 MEASUREMENTS (Male / Female) Normal Values 2D ECHO LV Diastolic Diameter PLAX 4.5 cm 4.2 - 5.9 / 3.9 - 5.3 cm LV Systolic Diameter PLAX 2.8 cm 2.1 - 4.0 cm LV Fractional Shortening PLAX 37.3 % 25 - 46 % LV Ejection Fraction 2D Teich 67.4 % IVS Diastolic Thickness 0.9 cm LVPW Diastolic Thickness 0.9 cm LV Relative Wall Thickness 0.4 LVOT Diameter 2.0 cm Aortic Root Diameter 3.2 cm LA Systolic Diameter LX 2.7 cm 3.0 - 4.0 / 2.7 - 3.8 cm Ascending Aorta Diameter 3.3 cm DOPPLER AV Peak Velocity 108.0 cm/s AV Peak Gradient 4.7 mmHg AV Mean Velocity 78.2 cm/s AV Mean Gradient 3.0 mmHg AV Velocity Time Integral 26.4 cm LVOT Peak Velocity 102.0 cm/s LVOT Peak Gradient 4.2 mmHg LVOT Mean Velocity 52.7 cm/s LVOT Mean Gradient 1.0 mmHg LVOT Velocity Time Integral 20.9 cm LVOT Stroke Volume 65.7 cm AV Area Cont Eq vti 2.5 cm AV Area Cont Eq pk 3.0 cm MV Peak Velocity 78.6 cm/s MV Peak Gradient 2.5 mmHg MV Mean Velocity 45.6 cm/s MV Mean Gradient 1.0 mmHg Mitral E Point Velocity 87.4 cm/s Mitral A Point Velocity 64.7 cm/s Mitral E to A Ratio 1.4 MV PHT Velocity 78.7 cm/s MV Deceleration [place] 231.0 cm/s MV Pressure Half Time 102.2 ms MV Area PHT 2.2 cm MV Deceleration Time 254.0 ms TR Peak Velocity 265.0 cm/s TR Peak Gradient 28.1 mmHg Right Atrial Pressure 5.0 mmHg Pulmonary Artery Systolic Pressu 33.1 mmHg Right Ventricular Systolic Press 33.1 mmHg PV Peak Velocity 95.1 cm/s PV Peak Gradient 3.6 mmHg PV Mean Velocity 65.2 cm/s PV Mean Gradient 2.0 mmHg PV Velocity Time Integral 24.5 cm LV E' Lateral Velocity 10.7 cm/s Mitral E to LV E' Lateral Ratio 8.2 LV E' Septal Velocity 7.7 cm/s Mitral E to LV E' Septal Ratio 11.4
--- NOTE | 2017-09-14 14:30 | Patient Discharge Instructions ---
Discharge Instructions General Discharge Information You were seen/treated for: Recurrent syncope Possible arrhythmia (tachybradycardia syndrome) History of thyroid nodule Special Instructions: Follow-up with customer retention representative after a week of discharge to have holter monitoring Follow-up with primary care doctor after discharge Follow-up with Dr. Cabral for thyroid nodule Please have adequate intake of salt Diet Continue normal diet: Yes Activity Full Activity/No Limits: Yes Additional ACTIVITY Info: As tolerated Acute Coronary Syndrome Inclusion Criteria At DC or during hospital stay patient has or had the following: ACS DIAGNOSIS No Discharge Core Measures Meds if any: Prescribed or Continued at Discharge Meds if any: NOT Prescribed or Continued at Discharge Congestive Heart Failure Inclusion Criteria At DC or during hospital stay patient has or had the following: CHF DIAGNOSIS No Discharge Core Measures Meds if any: Prescribed or Continued at Discharge Meds if any: NOT Prescribed or Continued at Discharge Cerebrovascular accident Inclusion Criteria At DC or during hospital stay patient has or had the following: CVA/TIA Diagnosis No Discharge Core Measures Meds if any: Prescribed or Continued at Discharge Meds if any: NOT Prescribed or Continued at Discharge Venous thromboembolism Inclusion Criteria VTE Diagnosis No VTE Type NONE VTE Confirmed by (Test) NONE Discharge Core Measures - Per Current guidelines, there needs to be overlap - treatment for the first 5 days of Warfarin therapy. - If discharged on Warfarin prior to 5 days of - overlap therapy, the patient will need to be - assessed for post discharge needs including - *Post discharge parental anticoagulation - *Warfarin and/or parental anticoagulation education - *Follow up date to check INR post discharge At least 5 days overlap therapy as Inpatient No Meds if any: Prescribed or Continued at Discharge Note: Overlap Therapy is Warfarin and Anticoagulant Meds if any: NOT Prescribed or Continued at Discharge
[2017-09-14 14:40] VITALS: BP 144/86
[2017-09-14 22:40] VITALS: BP 138/74
[2017-09-15 06:58] VITALS: BP 160/96
--- NOTE | 2017-09-15 07:31 | PN-Observation ---
Angy Ellison MD,[facility] 09/15/17 0730: Observation Note Observation Note _ I have personally examined KIMBER SPANGLER. him disposition is uncertain at this time. Before a determination can be made, he requires continued observation for the following reasons [recurrent syncope pending workup]. Assessment/Plan Medical Assessment: 76-year-old male with past medical history significant for hypothyroidism, whitecoat hypertension history of stage I diastolic dysfunction in 2013 and history of syncope, history of thyroid nodule brought to emergency department by EMS after patient passed out on his toilet. Vitals in emergency department, patient afebrile, no tachypnea, no tachycardia, no hypotension or uncontrolled hypertension, oxygen saturation of 97-99% on room air. EKG emergency department showed normal sinus rhythm as per EMS rhythm strip read as atrial fibrillation. Head CT was negative for any intracranial findings. Patient remained afebrile overnight. Hemodynamically stable. On cafeteria monitor episodes of sinus bradycardia noticed. Along with first-degree heart block, lowest heart rate 55 and highest heart rate 60. Patient was placed in observation for the management of following problems New episode of Syncope/history of syncope/history of diastolic dysfunction Patient has been worked up in the past in 2013 for a similar episode of syncope. He was noticed to have stage I diastolic dysfunction, ejection fraction of 60% and mild mitral regurgitation and mild aortic regurg and aortic sclerosis. Current episode of syncope was situational as per the patient, initially he felt lightheaded and then he crawled to the restroom floor and had a bowel movement and after that he does not remember when he lost consciousness. Patient denied any chest pain, shortness of breath, dyspnea on exertion, headaches, history of seizures, or sudden weakness. Patient had a head CT that showed no acute intracranial abnormality in emergency department, CT cervical spine showed multilevel degenerative changes, atheromatous calcifications at the bilateral carotid bifurcations and 3.3 cm heterogenous lesion in the left lobe of thyroid. Patient was positive for orthostatic hypotension and on repeat today he is positive from laying to sitting position. This point out more towards syncope in the setting of dehydration as per patient his water intake is only 1-2 glasses per day. He was counselled about adwquate water intake.Vasovagal syncopes and is a possibility as patient had a bowel movement before syncope. Echocardiogram showed ejection fraction of more than 65%, Normal left ventricular diastolic filling pattern for age. No aortic stenosis. Ultrasound of carotids showed no evidence to suggest a hemodynamically significant stenosis of greater than 50% diameter reduction. Cardiology consult was also placed. On telemonitoring patient had some episodes of bradycardia and some conduction delays. Therefore possibility of arrhythmia cannot be totally ruled out. Patient will need long- term monitoring for that. Patient was also counselled to eat appropriate amount of salt as he is limiting his salt intake for health concerns. He was also given a compression stocking on discharge. History of thyroid nodule/hypothyroidism Patient has history of thyroid nodule for which he follows up with Dr. Cabral. CT scan of the head also noticed heterogenous lesion on the left lower thyroid extending substernally into the superior mediastinum measuring 3.3 cm. Patient will need further workup as an outpatient. Patient is also on levothyroxine for the management of hypothyroidism CODE STATUS Patient is DNR/DNI Diet Patient is on regular diet Problem List: 1. Syncope Qualifiers Syncope type: unspecified Qualified Code: R55 - Syncope and collapse 2. Hypothyroidism DVT/Prophylaxis: pharmacological Consulting Request: Consulting Specialty: Cardiology Discharge Plan Discharge Disposition: home Stable for Discharge? Yes Anticipated Discharge (Day): today Subjective Follow-up For: Recurrent Syncope Complaints: no complaints Tele-Events Since Last Visit: On cafeteria monitor episodes of sinus bradycardia noticed. Along with first- degree heart block, lowest heart rate 55 and highest heart rate 60. Subjective: Patient was noted he lying in the bed. He remained afebrile overnight to complaints of shortness of breath or chest pain overnight. He did not have any other syncopal episodes. Review of Systems Constitutional: Denies: chills, fever. Cardiovascular: Denies: chest pain, palpitations. Respiratory: Denies: cough, short of breath. Gastrointestinal: Denies: abdominal pain, nausea, vomiting. Objective Last 24 Hrs of Vital Signs/I&O Vital Signs Date Time Temp Pulse Resp B/P B/P Pulse O2 O2 Flow FiO2 Mean Ox Delivery Rate 09/15 0658 98.9 52 20 160/96 97 Room Air 09/14 2240 98.7 60 21 138/74 96 Intake & Output 09/15 1600 09/15 0800 09/15 0000 Intake Total 120 510 Output Total Balance 120 510 Intake, IV 10 Intake, Oral 120 500 Physical Exam General Appearance: Alert, Oriented X3, Cooperative HEENT: Atraumatic, PERRLA Neck: Supple, No JVD Cardiovascular: Regular Rate, Normal S1, Normal S2 Lungs: Clear to Auscultation, Normal Air Movement Abdomen: Soft, No Tenderness Neurological: Normal Gait, Normal Speech, Strength at 5/5 X4 Ext, Normal Tone, Sensation Intact Extremities: No Clubbing, No Edema Vascular: Normal Pulses, Pulses Symmetrical Current Medications: Current Medications Sig/Sharad Start time Last Medication Dose Route Stop Time Status Admin Acetaminophen 650 MG Q6P PRN 09/13 2115 DCD PO Aspirin Buffered 325 MG Q48 09/15 1000 DCD 09/15 PO 0622 Cholecalciferol 400 IU DAILY 09/14 1000 DCD 09/14 PO 0847 Heparin Sodium 5,000 UNIT Q8 09/13 2200 DCD (Porcine) SC Levothyroxine Sodium 0.075 MG DAILY AC 09/14 1200 DCD 09/15 PO 0551 Angle WOLFE,Terra 09/15/17 1109: Observation Note Observation Note _ I have personally examined KIMBER SPANGLER. him disposition is uncertain at this time. Before a determination can be made, he requires continued observation for the following reasons []. Patient feels well and is asymptomatic. He has been able to ambulate to the bathroom without any dizziness. Denies any chest pain difficulty breathing fever chills or palpitations. Chest exam is clear heart sounds S1 plus S2. Abdomen soft nontender pulses are present. His vital signs are currently stable. Troponin 3 sets have been negative. Yesterday upon orthostatic checks patient blood pressure had dropped to 160s systolic to 142 systolic. However today his blood pressure only dropped by 14.6. Patient has not been using any salt in his diet. Assessment plan Patient may have supine hypertension syndrome. This may explain his symptoms of postural syncopal episode. He should be counseled to sleep with head and elevated at least 30 at night. Patient may benefit from leg stockings and should've rechecked his orthostatics with stockings on. Possible discharge home today after cardio evaluation Patient will need outpatient Holter monitor Follow-up with Dr. Olmedo as outpatient
--- NOTE | 2017-09-15 10:22 | PN- Cardiology ---
Subjective Subjective: The patient is feeling well. He has been ambulatory without symptoms. He has had a couple of periods of mild tachycardia in the 110-120 range which looks like probable sinus with a bundle branch block probably rate related. There have been no periods of bradycardia. The patient is eager to be discharged. His echocardiogram showed good left ventricular systolic function and no major abnormalities. Objective Vital Signs and I&Os Vital Signs Date Time Temp Pulse Resp B/P B/P Pulse O2 O2 Flow FiO2 Mean Ox Delivery Rate 09/15 0658 98.9 52 20 160/96 97 Room Air 09/14 2240 98.7 60 21 138/74 96 09/14 1440 98.6 54 20 144/86 96 Room Air Intake & Output 09/15 1600 09/15 0800 09/15 0000 09/14 1600 09/14 0800 09/14 0000 Intake Total 120 510 400 Output Total 200 Balance 120 510 400 -200 Intake, IV 10 Intake, Oral 120 500 400 Output, Urine 200 Patient 125 lb Weight Physical Exam: He is in no distress HEENT exam normal Chest clear Heart regular rhythm, no murmurs Current Medications: Current Medications Sig/Sharad Start time Last Medication Dose Route Stop Time Status Admin Acetaminophen 650 MG Q6P PRN 09/13 2115 AC PO Aspirin Buffered 325 MG Q48 09/15 1000 AC 09/15 PO 0622 Cholecalciferol 400 IU DAILY 09/14 1000 AC 09/14 PO 0847 Heparin Sodium 5,000 UNIT Q8 09/13 2200 AC (Porcine) SC Levothyroxine Sodium 0.075 MG DAILY AC 09/14 1200 AC 09/15 PO 0551 Levothyroxine Sodium 0.075 MG DAILY AC 09/14 0700 DC PO Results Last 48 Hrs of Labs/Mics: Laboratory Tests 09/14/175: Troponin I 0.02 09/14/17414: Anion Gap 11, Estimated GFR > 60, BUN/Creatinine Ratio 17.3, CBC w Diff MAN DIFF ORDERED, RBC 4.51 L, MCV 96.5 H, MCH 31.6 H, MCHC 32.7 L, RDW 13.6, Plt Count ND, MPV 9.4, Gran % 78.3 H, Lymphocytes % 13.7 L, Monocytes % 6.4, Eosinophils % 1.3, Basophils % 0.3, Absolute Granulocytes 5.5, Segmented Neutrophils 83 H, Absolute Lymphocytes 1.0 L, Lymphocytes 9 L, Monocytes 5, Absolute Monocytes 0.4, Eosinophils 3, Absolute Eosinophils 0.1, Absolute Basophils 0, Platelet Estimate ADEQUATE, Polychromasia 1+, Hypochromic- Microcytic 1+, Poikilocytosis 1+, Ovalocytes 1+, Fld Total RBCs Counted 100 09/13/17 2135: Troponin I 0.02 09/13/17 1533: Urine Color YEL, Urine Clarity CLEAR, Urine pH 6.0, Ur Specific Bryant 1.020, Urine Protein TRACE H, Urine Ketones NEG, Urine Nitrite NEG, Urine Bilirubin NEG, Urine Urobilinogen 0.2, Ur Leukocyte Esterase NEG, Ur Microscopic SEDIMENT EXAMINED, Urine RBC FEW H, Urine WBC 1-3 H, Ur Epithelial Cells RARE, Urine Bacteria FEW H, Hyaline Casts RARE H, Urine Mucus RARE, Urine Hemoglobin NEG, Urine Glucose NEG 09/13/17 1449: Anion Gap 12, Estimated GFR 53 L, BUN/Creatinine Ratio 19.2, Glucose 176 H, Calcium 9.3, Magnesium 2.0, Total Bilirubin 0.6, AST 39, ALT 37, Alkaline Phosphatase 50, Troponin I < 0.01, Total Protein 6.9, Albumin 3.9, Globulin 3.0, Albumin/Globulin Ratio 1.3, TSH &T3 &Free T4 Intrp 1.530, PT 11.2, INR 1.03, APTT 25, D-Dimer High Sensitivty 239, CBC w Diff NO MAN DIFF REQ, RBC 4.46 L, MCV 96.6 H, MCH 32.1 H, MCHC 33.2, RDW 13.9, MPV 9.1, Gran % 73.9, Lymphocytes % 17.5 L, Monocytes % 5.6, Eosinophils % 2.1, Basophils % 0.9, Absolute Granulocytes 5.2, Absolute Lymphocytes 1.2, Absolute Monocytes 0.4, Absolute Eosinophils 0.1, Absolute Basophils 0.1 Assessment/Plan Assessment/Plan The patient is stable from cardiac standpoint. There've been no arrhythmias that definitively explain his syncopal episodes. He does have occasional periods of tachycardia which are probably sinus tachycardia with a rate related bundle branch block pattern. I think the patient can be safely discharged. He will report any additional symptoms. I have asked him to contact my office to set up a Holter monitor and a follow-up office visit in the near future. Continue telemetry? No
== END 2017-09-15 13:37 ==
LOC: ERH 14:28 → ERHI 19:43 → 1NO 19:43 → ENRESERV 21:12 → ENTRNSPT 22:15 → 1NO 22:30 → CMPTRNSPT 22:41 → 1NO 09-14 08:33 → ENPENDDIS 09-15 12:47 → 1NO 09-15 13:37
PROVIDERS: Hospitalist; Physician Assistant
DX: R55 Syncope and collapse (principal); I10 Essential (primary) hypertension; E03.9 Hypothyroidism, unspecified; E55.9 Vitamin D deficiency, unspecified; E04.1 Nontoxic single thyroid nodule; Z79.82 Long term (current) use of aspirin; R00.0 Tachycardia, unspecified
CPT/HCPCS: 36592; 71045; 81001; 82436; 93005; 93010; 93306; 99291; G0378; J1644